=== PATIENT | female | born 1955 | race Asian ===

== ENCOUNTER 2018-05-25 07:37 | Outpatient (CLI) | payer OTHER ==
--- NOTE | 2018-05-26 14:44 | MRI Report ---
Reason: DIZZINESS AND GIDDINESS Procedure Date: 05/25/2018 Accession Number: [id number] / [id number] Procedure: MRI - Brain W/O CPT Code: FULL RESULT: EXAM: MRI BRAIN WITHOUT CONTRAST EXAM DATE: 05/25/2018 08:32 AM. CLINICAL HISTORY: 62-year-old female. DIZZINESS AND GIDDINESS. COMPARISON: None. TECHNIQUE: Multiplanar, multisequence T1-weighted and fluid-sensitive MR sequences of the brain were performed. Sequences optimized for routine evaluation. Other: None. IV Contrast: None. FINDINGS: Brain Volume: Normal for age. Parenchyma/Dura: No mass, acute infarct or hemorrhage. Few scattered subcortical T2/FLAIR hyperintense white matter lesions within cerebral hemispheres bilaterally. There is a 3 mm anterior right frontal T2 hyperintense lesion (series 601 image 20) with prominent associated susceptibility artifact (series 801 image 20). Ventricles/Cisterns: No hydrocephalus. No abnormal extra-axial fluid collection or hemorrhage. Orbits: Symmetric and unremarkable. Sella Turcica: The pituitary gland, cavernous sinuses, suprasellar cistern and optic chiasm are unremarkable. IAC: Symmetric and unremarkable. Vasculature: Normal signal flow void is seen in the major arterial structures at the skull base. Sinuses: No acute appearing sinus disease. Bones: No focal pathologic appearing marrow signal changes. Other: None. IMPRESSION: 1. No MRI evidence of acute intracranial abnormality. Specifically, no evidence of acute or subacute infarct, acute intracranial hemorrhage, mass, midline shift, or hydrocephalus. 2. Few scattered white matter T2/FLAIR hyperintensities, nonspecific, and can be seen with the entire gamut of white matter conditions, including migraine headaches and as sequela of chronic microangiopathy. 3. There is a 3 mm anterior right frontal T2 hyperintense lesion (series 601 image 20) with prominent associated susceptibility artifact (series 801 image 20). While nonspecific, this is favored to represent a small cavernous malformation. RADIA
--- NOTE | 2018-05-26 14:49 | MRI Report ---
Reason: DIZZINESS AND GIDDINESS Procedure Date: 05/25/2018 Accession Number: [id number] / [id number] Procedure: MRI - Angio Brain W/O (MRA) CPT Code: FULL RESULT: EXAM MRA BRAIN EXAM DATE: 05/25/2018 08:28 AM. CLINICAL HISTORY: 62-year-old female. DIZZINESS AND GIDDINESS. COMPARISON: MRI brain obtained currently TECHNIQUE: Multiplanar, multisequence MRA sequences of the brain were performed. Other: None. Post-processing: Multiplanar 3D MIP reconstructions. IV Contrast: None. FINDINGS: RIGHT Internal Carotid (ICA): No aneurysm, stenosis or anomaly. Middle Cerebral (MCA): No aneurysm, stenosis or anomaly. Anterior Cerebral (JUANIS): No aneurysm, stenosis or anomaly. Posterior Cerebral (DESIGN EDITOR): No aneurysm, stenosis or anomaly. Posterior Communicating (P-COM): The right posterior communicating artery not clearly visualized, likely hypoplastic or aplastic. Vertebral: No aneurysm, stenosis or anomaly in the visualized upper vertebral artery. LEFT Internal Carotid (ICA): No aneurysm, stenosis or anomaly. Middle Cerebral (MCA): No aneurysm, stenosis or anomaly. Anterior Cerebral (JUANIS): No aneurysm, stenosis or anomaly. Posterior Cerebral (DESIGN EDITOR): No aneurysm, stenosis or anomaly. Posterior Communicating (P-COM): No aneurysm, stenosis or anomaly. Vertebral: No aneurysm, stenosis or anomaly in the visualized upper vertebral artery. MIDLINE Anterior Communicating (A-COM): No aneurysm, stenosis or anomaly. Basilar Artery:No aneurysm, stenosis or anomaly. Other: None. IMPRESSION: 1. No MRA evidence of hemodynamically significant stenosis, large vessel occlusion, aneurysm, or vascular malformation within intracranial arteries. RADIA
== END 2018-05-25 07:38 | disposition home or self-care (01) ==
LOC: DI 07:37
PROVIDERS: ATTEND Registered Nurse Diabetes Educator
DX: R42 Dizziness and giddiness (principal)
CPT/HCPCS: 70544; 70551

== ENCOUNTER 2021-10-01 09:14 | Emergency (ER) | payer OTHER ==
[2021-10-01 09:21] VITALS: BP 150/56
--- OUTSIDE RECORDS SUMMARY | 2021-10-01 09:29 | EXTERNAL MEDICAL SUMMARY RPT | Continuity of Care Document ---
:1955 Author Organization [facility] Address [address] [place] [address] Phone Care Team Providers Name Role Phone Corado Unavailable Unavailable Wakelin Unavailable Unavailable Corado Unavailable Unavailable Allergies No information. Encounters No information. Medications date description facility [id number] Levothyroxine Sodium 0.1 MG Oral Tablet [facility] Problems date description facility [id number] Personal history of colonic polyps [facility] [id number] Encounter for screening for malignant n eoplasm of [facility] [id number] Contact with and (suspected) exposure t o COVID-[address] [place] [address] Procedures date description facility [id number] [facility] [id number] [facility] [id number] [facility] Results No information. Vital Signs date measurement value source 20210801 weight_standard 63.5 lb [id number] weight_metric 28.8 kg [id number] temperature_standard 97.5 F 20210801 temperature_metric 36.39 C 20210801 respiration_rate 12 /min 20210801 height_standard 57 in [id number] height_metric 144.78 cm 20210801 heart_rate 64 /min 20210801 BP_systolic 127 mm[Hg] 20210801 BP_diastolic 73 mm[Hg] 20210801 BMI 30.2 kg/m2
[2021-10-01] MEDS ORDERED: HYDROcod/ACETAM 5/325 MG TABLET PO STA (09:33)
--- NOTE | 2021-10-01 09:51 | ED Physician Documentation ---
History of Present Illness - Stated complaint Stated Complaint: RT KNEE PX - Chief complaint Chief Complaint: Trauma Ext - History obtained from History obtained from: Patient - History of Present Illness Timing: How many weeks ago (3) Pain level max: 8 Pain level now: 6 - Additonal information Additional information: Patient is a 66-year-old female who presents to the emergency department the right knee pain. She states that this started about 3 weeks ago. Does not recall any injuries. She states that today she did twist on the right knee and has had increased pain. She states that she was told by an auditing manager not to take any ibuprofen because of the potential for her glaucoma to worsen. Ther efore she did take Tylenol a few days ago, but has not taken anything today. Worse with movement, better with rest. No fall. Review of Systems Constitutional: denies: Fever, Chills Respiratory: denies: Cough GI: denies: Nausea, Vomiting, Diarrhea Skin: denies: Rash Musculoskeletal: denies: Neck pain, Back pain Neurologic: denies: Headache PD PAST MEDICAL HISTORY - Past Medical History Past Medical History: Yes Cardiovascular: None Respiratory: None Neuro: None Endocrine/Autoimmune: HyPOthyroidism GI: None SATELLITE INSTRUCTION FACILITATOR: None : None HEENT: None Psych: None Musculoskeletal: None Derm: None - Past Surgical History Past Surgical History: Yes Ortho: Carpal Tunnel surgery /SATELLITE INSTRUCTION FACILITATOR: section - Present Medications Home Medications: Ambulatory Orders Medication Instructions Recorded Confirmed HYDROcod/ACETAM 5/325 [[place] 5/325] 1 - 2 ea PO Q6H PRN #14 tablet 10/01/21 Levothyroxine Sodium [Synthroid] 100 mcg PO DAILY 10/01/21 10/01/21 - Allergies Allergies/Adverse Reactions: Allergies Allergy/AdvReac Type Severity Reaction Status Date / Time No Known Drug Allergies Allergy Verified 10/01/21 09:17 - Social History Does the pt smoke?: No Smoking Status: Never smoker Does the pt drink ETOH?: No Does the pt have substance abuse?: No - Immunizations Immunizations are current?: Yes PD ED PE NORMAL - Vitals Vital signs reviewed: Yes - General General: Alert and oriented X 3, No acute distress - HEENT HEENT: PERRL, Moist mucous membranes - Neck Neck: Supple, no meningeal sign - Cardiac Cardiac: RRR, Strong equal pulses - Respiratory Respiratory: No respiratory distress, Clear bilaterally - Abdomen Abdomen: Soft, Non tender, Non distended - Derm Derm: Warm and dry - Extremities Extremities: Other (Tender to palpation along the lateral joint line of the rig ht knee. Mild swelling. Neurovascularly intact. Also some tenderness on the posterior aspect of the knee. ACL, MCL, PCL, LCL are grossly intact, somewhat limited exam secondary to pain. Unable to tolerate meniscus testing. NVI) - Neuro Neuro: Alert and oriented X 3 - Psych Psych: Normal mood, Normal affect Results - Vitals Vitals: Vital Signs - 24 hr 10/01/21 09:18 Temperature 36.1 C L Heart Rate 60 Respiratory 16 Rate Blood Pressure 150/56 H O2 Saturation 100 Oxygen O2 Source Room air - Rads (name of study) Right knee x-ray Radiology: Final report received, EMP read contemporaneously, See rad report (small joint effusion. no fracture) PD MEDICAL DECISION MAKING - ED course Complexity details: reviewed results, re-evaluated patient, considered differential, d/w patient ED course: 66-year-old female with a small joint effusion of the right knee. No acute findings otherwise on x-ray. Declan bandage applied for compression, given crutches. Will prescribe pain medication. Likely has a meniscus injury. We will have her follow-up with orthopedics for further care. Did discuss a knee brace, patient would like to try to avoid this at this time. Patient counseled regarding signs and symptoms for which I believe and urgent re-evaluation would be necessary. Patient with good understanding of and agreement to plan and is comfortable going home at this time This document was made in part using voice recognition software. While efforts are made to proofread this document, sound alike and grammatical errors may occur. I am prescribing a short course of short-acting opioid pain medication for this patient. I have reviewed the patients INSURANCE AGENCY OWNER and no concerning findings were noted. I have discussed that the opioids are for short term therapy only, and will not be refilled from the ED. Departure - Departure Disposition: 01 Home, Self Care Clinical Impression: Knee effusion Qualifiers: Laterality: right Qualified Code(s): M25.461 - Effusion, right knee Knee pain, right Qualifiers: Chronicity: acute Qualified Code(s): M25.561 - Pain in right knee Condition: Good Instructions: ED Meniscal Injury Knee Poss, ED Effusion Knee Follow-Up: MARIA ISABEL FLORES MD [Primary Care Provider] - [facility] [Provider Group] - Within 1 week Prescriptions: HYDROcod/ACETAM 5/325 [[place] 5/325] 1 - 2 ea PO Q6H PRN #14 tablet PRN Reason: Pain Comments: Please follow-up with orthopedics for further care. Return if you worsen. Your prescriptions were sent to [facility] in [place]. You may bear weight as tolerated., Rest, ice, elevate the knee whenever possible. Your x-ray shows a knee effusion and you may have a meniscus injury. This will need to be reevaluated by orthopedics. I am prescribing a short course of narcotic pain medication for you. These are potentially dangerous and addictive medications that should be used carefully. These medications may constipate you. Take an veni-cmi-yyaobjw stool softener (docusate) twice daily with plenty of water while taking these medications. If you go 24 hours without a bowel movement, take lnxy-qqf-jzaizjw miralax, per package instructions. Do not drink or drive while taking these medications. If you received narcotic or sedating medications while in the emergency department, do not drive for 24 hours. Store this medication in a safe, secure place and out of reach of children. It is a violation of federal law to give or sell this medication to another person or to use in a manner other than prescribed. The ED will not refill narcotic prescriptions, including prescriptions lost or stolen. To dispose of unwanted medications: 1. [facility] at [address] [facility] in [place] has a medication drop box. They accept prescription medications (in pill form) Sunday through Sunday 9:00 a.m. to 5:00 p.m. 2. The [facility] [employer] accepts prescription medications (in pill form only) for disposal year round. Call for more information. 3. Contact the [facility] for the next [facility] sponsored prescription drug collection event. , [phone], or [phone]; Discharge Date/Time: 10/01/21 11:16
--- NOTE | 2021-10-01 10:32 | XRAY Report ---
PROCEDURE: Knee 4 View RT INDICATIONS: R knee pain x 3 weeks, twisted today TECHNIQUE: 4 views of the right knee(s) were acquired. COMPARISON: None. FINDINGS: Bones: No fractures or dislocations. No suspicious bony lesions. There is mild medial femorotibial joint space narrowing, with associated degenerative change with sub chondral sclerosis and osteophyte formation. On the sunrise view, there is at least moderate lateral patellofemoral joint space narrowing, with as sociated remodeling changes, including spurs along the margins of the patella. The patella is subluxe d laterally. Soft tissues: There is a small joint effusion. No suspicious soft tissue calcifications. IMPRESSION: Small joint effusion. No acute bony abnormality is seen on these plain films. Osteoarthritic degenerative changes are seen, which are worst involving the patellofemoral joint. If it would be helpful for clinical management decision making, please consider a dedicated, schedule d knee MRI for further evaluation (assuming that there is no contraindication). Reviewed by: Murphy Cramer MD on 10/01/2021 9:30 AM KERRIE Approved by: Murphy Cramer MD on 10/01/2021 9:30 AM KERRIE Station ID: [id number]
== END 2021-10-01 11:16 | disposition home or self-care (01) ==
LOC: ED 09:14
DX: M25.461 Effusion, right knee (principal)
CPT/HCPCS: 73564; 99282; 99283; A9270

== ENCOUNTER 2021-10-11 10:15 | Outpatient (CLI) | payer OTHER ==
--- NOTE | 2021-10-11 13:23 | XRAY Report ---
PROCEDURE: Knee 3 View RT INDICATIONS: RIGHT KNEE PAIN TECHNIQUE: 3 views of the right knee(s) were acquired. COMPARISON: None. FINDINGS: Bones: No fractures or dislocations. No suspicious bony lesions. Moderate right knee medial and pat ellofemoral compartment osteoarthritis. Mild right knee lateral compartment osteoarthritis. Soft tissues: No joint effusion. No suspicious soft tissue calcifications. IMPRESSION: Right knee tricompartmental osteoarthritis as described above. Reviewed by: Dori Suresh MD, PhD on 10/11/2021 1:22 PM PDT Approved by: Dori Suresh MD, PhD on 10/11/2021 1:22 PM PDT Station ID: [id number]
== END 2021-10-11 23:59 | disposition home or self-care (01) ==
LOC: DI.WOS 10:15
PROVIDERS: ATTEND Physician Assistant
DX: M17.11 Unilateral primary osteoarthritis, right knee (principal)

== ENCOUNTER 2022-06-27 08:00 | Outpatient (CLI) | payer MEDICARE, OTHER ==
--- NOTE | 2022-06-27 14:25 | XRAY Report ---
PROCEDURE: Knee 4 View BILAT INDICATIONS: BILAT KNEE PAIN TECHNIQUE: 4 views of the bilateral knee(s) were acquired. COMPARISON: Knee x-ray right 10/11/2021 FINDINGS: Bones: No fractures or dislocations. No suspicious bony lesions. There is moderate right medial an d mild to moderate left medial compartment narrowing. Mild to moderate left lateral compartment narro wing is present. There is moderate bilateral patellofemoral compartment narrowing. Periarticular oste ophytes are present. No definitive erosions. Right knee is stable compared to 10/11/2021 Soft tissues: No joint effusion. No suspicious soft tissue calcifications. IMPRESSION: Arthritic changes bilaterally most severe medially as described above. Reviewed by: Va Romero MD on 06/27/2022 2:24 PM PST Approved by: Va Romero MD on 06/27/2022 2:24 PM PST Station ID: [id number]
== END 2022-06-27 23:59 | disposition home or self-care (01) ==
LOC: DI.WOS 08:00
PROVIDERS: ATTEND Physician Assistant Surgical
DX: M17.0 Bilateral primary osteoarthritis of knee (principal)

== ENCOUNTER 2022-09-14 08:04 | Outpatient (CLI) | payer MEDICARE, OTHER ==
[2022-09-14 11:48] LABS: BASOPHILS % (AUTO) 0.3 %; EOSINOPHILS # (AUTO) 0.1 10^3/uL (0.0-0.7); HCT - HEMATOCRIT 39.9 % (37.0-47.0); HGB - HEMOGLOBIN 13.1 g/dL (12.0-16.0); LYMPHOCYTES # (AUTO) 1.7 10^3/uL (1.5-3.5); LYMPHOCYTES % (AUTO) 26.5 %; MEAN CORPUSCULAR HEMOGLOBIN 30.8 pg (27.0-31.0); MEAN CORPUSCULAR HGB CONC 32.8 g/dL (32.0-36.0); MEAN CORPUSCULAR VOLUME 93.9 fL (81.0-99.0); MEAN PLATELET VOLUME 9.3 fL (7.9-10.8); MONOCYTES # (AUTO) 0.4 10^3/uL (0.0-1.0); MONOCYTES % (AUTO) 5.8 %; NEUTROPHILS # (AUTO) 4.3 10^3/uL (1.5-6.6); NEUTROPHILS % (AUTO) 65.1 %; PLT - PLATELET COUNT 259 10^3/uL (130-450); RED BLOOD COUNT 4.25 10^6/uL (4.20-5.40); RED CELL DISTRIBUTION WIDTH 11.9 % (12.0-15.0); WHITE BLOOD COUNT 6.5 x10^3/uL (4.8-10.8)
[2022-09-14 12:08] LABS: ALBUMIN 4.1 g/dL (3.2-5.5); ALBUMIN/GLOBULIN RATIO 1.2 (1.0-2.2); ALKALINE PHOSPHATASE 95 IU/L (42-121); ALT ALANINE AMINOTRANSFERASE 37 IU/L (10-60); AST ASPARTATE AMINOTRANSFERASE 40 IU/L (10-42); BILIRUBIN,TOTAL 0.5 mg/dL (0.2-1.0); BUN - BLOOD UREA NITROGEN 17 mg/dL (6-20); CARBON DIOXIDE - CO2 24 mmol/L (21-32); CHLORIDE 107 mmol/L (101-111); CHOL/HDL RATIO 4.8 (<4.4); CHOLESTEROL 245 mg/dL; CREATININE 0.8 mg/dL (0.4-1.0); GFR - MDRD 72 (>89); GLUCOSE 119 mg/dL (70-100); HDL CHOLESTEROL 51 mg/dL; LDL CHOLESTEROL,CALCULATED 147 mg/dL; LDL/HDL RATIO 2.9 (<4.4); POTASSIUM 3.8 mmol/L (3.5-5.0); SODIUM 139 mmol/L (135-145); TOTAL PROTEIN 7.5 g/dL (6.7-8.2); TRIGLYCERIDES 234 mg/dL; VLDL CHOLESTEROL 47 mg/dL
[2022-09-14 12:12] LABS: THYROID STIMULATING HORMONE 4.57 uIU/mL (0.34-5.60)
[2022-09-14 12:14] LABS: FREE T4 (FREE THYROXINE) 0.92 ng/dL (0.58-1.64)
== END 2022-09-14 08:05 | disposition home or self-care (01) ==
LOC: LAB.N 08:04
PROVIDERS: ATTEND Nurse Practitioner
DX: E78.5 Hyperlipidemia, unspecified (principal); Z51.81 Encounter for therapeutic drug level monitoring; E05.90 Thyrotoxicosis, unspecified without thyrotoxic crisis or storm
CPT/HCPCS: 36415; 80053; 80061; 83721; 84439; 84443; 85025

== ENCOUNTER 2022-10-06 13:58 | Outpatient (CLI) | payer MEDICARE, OTHER ==
--- NOTE | 2022-10-09 10:58 | Mammography Report ---
BILATERAL DIGITAL SCREENING MAMMOGRAM 3D/2D: 10/06/2022 CLINICAL: Routine screening. Comparison is made to exams dated: 10/21/2010 mammogram, 07/23/2009 mammogram, and 07/03/2008 mammogram - [facility]. Both breasts are almost entirely fatty (category a/<25% glandular tissue). There are benign calcifications in the left breast. No significant masses, calcifications, or other findings are seen in either breast. There has been no significant interval change. IMPRESSION: BENIGN There is no mammographic evidence of malignancy. A 1 year screening mammogram is recommended. Based on the Tyrer Cuzick model (a risk assessment model) the patients lifetime risk is 2.9% and her 10 year risk is 1.4%. According to the ACR, ACS, and NCCN guidelines, an annual breast MRI exam pascual g with mammogram is recommended if the patients lifetime risk is 20% or greater. This exam was interpreted at Station ID: [id number]. NOTE: For mammograms, a report in lay terms will be sent to the patient. Approximately 15% of breast malignancies will not be visualized mammographically. In the management of a palpable breast mass, a negative mammogram must not discourage biopsy of a clinically suspicious lesion. Electronically Signed By: Shay cooley/luis:10/06/2022 20:43:00 letter sent: No_Letter ACR BI-RADS Category 2: Benign Finding(s) 3342F PARENCHYMAL PATTERN: (F) - The breast(s) demonstrate(s) diffuse fatty replacement. BI-RADS CATEGORY: (2) - 2 Mammogram [id number] 1 year screening LATERALITY: (B)
== END 2022-10-06 13:59 | disposition home or self-care (01) ==
LOC: DI 13:58
DX: Z12.31 Encounter for screening mammogram for malignant neoplasm of breast (principal)

== ENCOUNTER 2023-02-21 08:01 | Outpatient (CLI) | payer MEDICARE, OTHER ==
--- NOTE | 2023-02-21 09:18 | DEXA Report ---
PROCEDURE: Dexa Spine and/or Hip INDICATIONS: POSTMENOPAUSAL TECHNIQUE: Dual energy x-ray absorptiometry (DXA) was performed on a [facility]. Regions measur ed are the AP Spine, femoral neck, and if needed forearm. COMPARISON: None FINDINGS: Lumbar Spine: Bone Mineral Density 0.790 g/cm/cm,T score -3.2. Left Femoral Neck: Bone Mineral Density 0.700 g/cm/cm, T score -2.4. Left Hip: Bone Mineral Density 0.828 g/cm/cm,T score -1.4. (T score greater or equal to -1.0: NORMAL) (T score from -1.1 to -2.4: OSTEOPENIA) (T score less than or equal to -2.5 to: OSTEOPOROSIS) Impression: By WHO criteria, this patient has osteoporosis. Patients with diagnosis of osteoporosis or osteopenia should have regular bone mineral density assess ment. For those eligible for Medicare, routine testing is allowed once every 2 years. Testing frequ ency can be increased for patients who have rapidly progressing disease or for those who are receivin g medical therapy to restore bone mass. Reviewed by: Lita Rutherford MD on 02/21/2023 9:17 AM PDT Approved by: Lita Rutherford MD on 02/21/2023 9:17 AM PDT Station ID: [id number]
== END 2023-02-21 08:02 | disposition home or self-care (01) ==
LOC: DI 08:01
PROVIDERS: ATTEND Nurse Practitioner
DX: M81.0 Age-related osteoporosis without current pathological fracture (principal); Z78.0 Asymptomatic menopausal state

== ENCOUNTER 2023-03-27 12:14 | Outpatient (CLI) | payer MEDICARE, OTHER ==
[2023-03-27 18:02] LABS: HCT - HEMATOCRIT 40.1 % (37.0-47.0); HGB - HEMOGLOBIN 13.3 g/dL (12.0-16.0); MEAN CORPUSCULAR HEMOGLOBIN 31.1 pg (27.0-31.0); MEAN CORPUSCULAR HGB CONC 33.2 g/dL (32.0-36.0); MEAN CORPUSCULAR VOLUME 93.7 fL (81.0-99.0); MEAN PLATELET VOLUME 9.3 fL (7.9-10.8); RED BLOOD COUNT 4.28 10^6/uL (4.20-5.40); RED CELL DISTRIBUTION WIDTH 11.9 % (12.0-15.0); WHITE BLOOD COUNT 6.9 x10^3/uL (4.8-10.8)
[2023-03-27 19:02] LABS: CRP - C-REACTIVE PROTEIN < 0.5 mg/dL (<0.5); URIC ACID 6.7 mg/dL (2.3-6.6)
[2023-03-27 19:23] LABS: RHEUMATOID FACTOR NEGATIVE (Negative)
[2023-03-28 19:07] LABS: ANTI-DNA (DS) AB QN <1 IU/mL (0-9)
[2023-03-29 15:08] LABS: ANTINUCLEAR ANTIBODIES IFA Negative (.)
[2023-03-29 19:07] LABS: CYCLIC CITRULLINATED PEP IGG/A 0 units (0-19)
== END 2023-03-27 12:15 | disposition home or self-care (01) ==
LOC: LAB.N 12:14
PROVIDERS: ATTEND Nurse Practitioner
DX: M25.541 Pain in joints of right hand (principal)
CPT/HCPCS: 36415; 84550; 85027; 85651; 86038; 86140; 86200; 86225; 86430

== ENCOUNTER 2023-04-10 09:29 | Outpatient (CLI) | payer MEDICARE, OTHER ==
--- NOTE | 2023-04-10 11:08 | XRAY Report ---
PROCEDURE: Hand 3 View RT INDICATIONS: HAND PAIN,RIGHT TECHNIQUE: 3 views of the hand(s) acquired. COMPARISON: None. FINDINGS: Bones: No fractures or dislocations. No suspicious bony lesions. Interphalangeal and first CMC josé miguel nt space narrowing with osteophytosis. Deep to the BB on the radial aspect of the first interphalange al joint, there are a pair of well-corticated ossifications measuring 4 mm and 5 mm. Soft tissues: No suspicious soft tissue calcifications or masses. IMPRESSION: Deep to the BB on the radial aspect of the first interphalangeal joint, there is a pair of well-corti cated ossifications measuring 4 mm and 5 mm. Findings likely represent dystrophic calcifications in t he setting of osteoarthritis Reviewed by: Hung Muñoz on 04/10/2023 11:07 AM PDT Approved by: uHng Muñoz on 04/10/2023 11:07 AM PDT Station ID: [id number]
== END 2023-04-10 09:30 | disposition home or self-care (01) ==
LOC: DI 09:29
PROVIDERS: ATTEND Nurse Practitioner
DX: M79.641 Pain in right hand (principal)

== ENCOUNTER 2023-09-18 10:43 | Outpatient (CLI) | payer MEDICARE, OTHER ==
[2023-09-18 17:40] LABS: BASOPHILS # (AUTO) 0.1 10^3/uL (0.0-0.1); BASOPHILS % (AUTO) 0.8 %; EOSINOPHILS # (AUTO) 0.1 10^3/uL (0.0-0.7); EOSINOPHILS % (AUTO) 1.1 %; HCT - HEMATOCRIT 43.2 % (37.0-47.0); HGB - HEMOGLOBIN 13.7 g/dL (12.0-16.0); LYMPHOCYTES # (AUTO) 3.6 10^3/uL (1.5-3.5); LYMPHOCYTES % (AUTO) 51.1 %; MEAN CORPUSCULAR HEMOGLOBIN 30.4 pg (27.0-31.0); MEAN CORPUSCULAR HGB CONC 31.7 g/dL (32.0-36.0); MEAN CORPUSCULAR VOLUME 95.8 fL (81.0-99.0); MEAN PLATELET VOLUME 9.3 fL (7.9-10.8); MONOCYTES # (AUTO) 0.5 10^3/uL (0.0-1.0); MONOCYTES % (AUTO) 6.3 %; NEUTROPHILS # (AUTO) 2.9 10^3/uL (1.5-6.6); NEUTROPHILS % (AUTO) 40.6 %; PLT - PLATELET COUNT 290 10^3/uL (130-450); RED BLOOD COUNT 4.51 10^6/uL (4.20-5.40); RED CELL DISTRIBUTION WIDTH 11.8 % (12.0-15.0); WHITE BLOOD COUNT 7.1 x10^3/uL (4.8-10.8)
[2023-09-18 18:27] LABS: ALBUMIN 4.6 g/dL (3.2-5.5); ALBUMIN/GLOBULIN RATIO 1.5 (1.0-2.2); ALKALINE PHOSPHATASE 65 IU/L (42-121); ALT ALANINE AMINOTRANSFERASE 22 IU/L (10-60); AST ASPARTATE AMINOTRANSFERASE 22 IU/L (10-42); BILIRUBIN,TOTAL 0.5 mg/dL (0.2-1.0); BUN - BLOOD UREA NITROGEN 19 mg/dL (6-20); CALCIUM 9.9 mg/dL (8.5-10.3); CARBON DIOXIDE - CO2 27 mmol/L (21-32); CHLORIDE 103 mmol/L (101-111); CHOL/HDL RATIO 5.7 (<4.4); CHOLESTEROL 275 mg/dL; CREATININE 0.8 mg/dL (0.6-1.3); GFR - MDRD 72 (>89); GLUCOSE 106 mg/dL (74-104); HDL CHOLESTEROL 48 mg/dL; LDL CHOLESTEROL,CALCULATED 150 mg/dL; LDL/HDL RATIO 3.1 (<4.4); POTASSIUM 4.5 mmol/L (3.5-4.5); SODIUM 136 mmol/L (135-145); TOTAL PROTEIN 7.6 g/dL (6.4-8.9); TRIGLYCERIDES 383 mg/dL (48-352); VLDL CHOLESTEROL 77 mg/dL
[2023-09-18 18:32] LABS: THYROID STIMULATING HORMONE 8.87 uIU/mL (0.34-5.60)
== END 2023-09-18 10:44 | disposition home or self-care (01) ==
LOC: LAB.N 10:43
PROVIDERS: ATTEND Nurse Practitioner
DX: E78.5 Hyperlipidemia, unspecified (principal); R73.03 Prediabetes; E03.9 Hypothyroidism, unspecified; Z51.81 Encounter for therapeutic drug level monitoring; Z79.899 Other long term (current) drug therapy
CPT/HCPCS: 36415; 80053; 80061; 83721; 84443; 85025

== ENCOUNTER 2023-10-18 09:08 | Outpatient (CLI) | payer MEDICARE, OTHER ==
--- NOTE | 2023-10-19 08:07 | Mammography Report ---
BILATERAL DIGITAL SCREENING MAMMOGRAM 3D/2D: 10/18/2023 CLINICAL: Routine screening. Comparison is made to exam dated: 10/06/2022 mammogram - [facility]. Both breasts are heterogeneously dense, which may obscure small masses (category c / 51-75% glandular tissue). There are benign calcifications in the left breast. No significant masses, calcifications, or other findings are seen in either breast. There has been no significant interval change. IMPRESSION: BENIGN There is no mammographic evidence of malignancy. A 1 year screening mammogram is recommended. Based on the Tyrer Cuzick model (a risk assessment model) the patient's lifetime risk is 6.3% and her 10 year risk is 3.2%. According to the ACR, ACS, and NCCN guidelines, an annual breast MRI exam pascual g with mammogram is recommended if the patient's lifetime risk is 20% or greater. This exam was interpreted at Station ID: [id number]. NOTE: For mammograms, a report in lay terms will be sent to the patient. Approximately 15% of breast malignancies will not be visualized mammographically. In the management of a palpable breast mass, a negative mammogram must not discourage biopsy of a clinically suspicious lesion. Electronically Signed By: Jr ruffin/luis:10/18/2023 10:19:24 letter sent: No_Letter ACR BI-RADS Category 2: Benign Finding(s) 3342F PARENCHYMAL PATTERN: (D) - The breast(s) demonstrate(s) heterogeneously dense fibroglandular sheba lafleur. BI-RADS CATEGORY: (2) - 2 RECOMMENDATION: (ANNUAL) - Recommend routine annual screening mammography. [id number] 1 year screening LATERALITY: (B)
== END 2023-10-18 09:09 | disposition home or self-care (01) ==
LOC: DI 09:08
DX: Z12.31 Encounter for screening mammogram for malignant neoplasm of breast (principal); R92.333 Mammographic heterogeneous density, bilateral breasts; R92.1 Mammographic calcification found on diagnostic imaging of breast

== ENCOUNTER 2024-02-05 08:23 | Outpatient (CLI) | payer MEDICARE, OTHER ==
[2024-02-05 12:29] LABS: THYROID STIMULATING HORMONE 1.42 uIU/mL (0.34-5.60)
[2024-02-05 12:32] LABS: CHOL/HDL RATIO 5.1 (<4.4); CHOLESTEROL 258 mg/dL; HDL CHOLESTEROL 51 mg/dL; LDL CHOLESTEROL,CALCULATED 146 mg/dL; LDL/HDL RATIO 2.9 (<4.4); TRIGLYCERIDES 303 mg/dL; VLDL CHOLESTEROL 61 mg/dL
== END 2024-02-05 08:24 | disposition home or self-care (01) ==
LOC: LAB.N 08:23
PROVIDERS: ATTEND Nurse Practitioner
DX: E78.70 Disorder of bile acid and cholesterol metabolism, unspecified (principal); Z51.81 Encounter for therapeutic drug level monitoring; E03.9 Hypothyroidism, unspecified
CPT/HCPCS: 36415; 80061; 83721; 84439; 84443